=== PATIENT | male | born 1990 | race Caucasian/White ===

== ENCOUNTER 2024-03-25 23:13 | Emergency (ER) | payer OTHER ==
[~2024-03-25] VITALS: Ht 180.3 cm; Wt 62.3 kg
[2024-03-25 23:27] VITALS: TEMP 97.8
[2024-03-26 00:22] LABS: HEMATOCRIT 38.7 % (42.0-52.0); MEAN CORPUSCULAR HEMOGLOBIN 36.1 pg (27.0-33.0); MEAN CORPUSCULAR HGB CONC 36.2 g/dl (32.0-36.5); MEAN CORPUSCULAR VOLUME 99.7 fl (80.0-96.0); PLATELET COUNT, AUTOMATED 256 10^3/uL (150-450); RED BLOOD COUNT 3.88 10^6/uL (4.30-6.10); WHITE BLOOD COUNT 13.8 10^3/uL (4.0-10.0)
[2024-03-26 00:43] LABS: ETHYL ALCOHOL (ETHANOL) 0.118 % (0.000-0.010)
[2024-03-26 00:45] LABS: ALBUMIN 3.6 G/DL (3.2-5.2); ALKALINE PHOSPHATASE 67 U/L (46-116); ALT/SGPT 21 U/L (7.0-40); AST/SGOT 13 U/L (<34); BILIRUBIN,DIRECT 0.2 MG/DL (<0.4); BILIRUBIN,TOTAL 0.4 MG/DL (0.3-1.2); BLOOD UREA NITROGEN 6 MG/DL (9-23); CALCIUM LEVEL 8.9 MG/DL (8.5-10.1); CARBON DIOXIDE LEVEL 27 MMOL/L (20-31); CHLORIDE LEVEL 105 MMOL/L (98-107); CREATININE FOR GFR 0.86 MG/DL (0.70-1.30); GLOMERULAR FILTRATION RATE > 60.0 (>60); GLUCOSE, FASTING 172 MG/DL (60-100); POTASSIUM SERUM 4.5 MMOL/L (3.5-5.1); SALICYLATE LEVEL < 3.0 MG/DL (<30); SODIUM LEVEL 138 MMOL/L (136-145)
[2024-03-26 00:59] LABS: AMPHETAMINES LEVEL URINE NEGATIVE (NEGATIVE); BARBITURATES URINE NEGATIVE (NEGATIVE); BENZODIAZEPINES URINE NEGATIVE (NEGATIVE); COCAINE METABOLITE URINE NEGATIVE (NEGATIVE); METHADONE URINE NEGATIVE (NEGATIVE); OPIATES URINE NEGATIVE (NEGATIVE); PHENCYCLIDINE URINE NEGATIVE (NEGATIVE)
[2024-03-26 01:01] LABS: CANNABINOIDS URINE POSITIVE (NEGATIVE)
[2024-03-26] MEDS: ACETAMINOPHEN TAB 650MG DOSE (2X325MG) PO ONE (01:18)
[2024-03-26] MEDS: ONDANSETRON 4MG ORAL DISINTEGRATING TAB PO ONE (03:08)
[2024-03-26] MEDS: LEVEMIR (INSULIN DETEMIR) 1 UNITS/0.01ML SC ONE (03:08)
[2024-03-26] MEDS: HumuLIN R (REGULAR) INSULIN (NovoLIN R) **100U/ML** PER UNIT SC ONE (03:09)
[2024-03-26 05:00] VITALS: BP 103/58; O2SAT 97
[2024-03-26] MEDS ORDERED: INSULIN LISPRO (NovoLOG) PER UNIT SC SCH ×2 (07:30→21:00)
== END 2024-03-26 05:38 | disposition home or self-care (01) ==
LOC: M ED 23:13
DX: S90.32XA Contusion of left foot, initial encounter (principal); S90.31XA Contusion of right foot, initial encounter; W13.4XXA Fall from, out of or through window, initial encounter; Y92.9 Unspecified place or not applicable; Y93.9 Activity, unspecified; Y99.9 Unspecified external cause status; Z63.0 Problems in relationship with spouse or partner; F31.9 Bipolar disorder, unspecified; F17.290 Nicotine dependence, other tobacco product, uncomplicated; Z88.1 Allergy status to other antibiotic agents
CPT/HCPCS: 73610; 73630; 80048; 80076; 80143; 80307; 82077; 84443; 85027; 99285; J1815

== ENCOUNTER 2024-04-06 14:54 | Inpatient (IN) | payer OTHER ==
[~2024-04-06] VITALS: Ht 180.3 cm; Wt 61.5 kg
[2024-04-06] MEDS ORDERED: INSULIN IV RATE CHANGE DOCUMENTATION ML/HR XX SCH (15:30)
[2024-04-06 15:34] LABS: VENOUS O2 SATURATION 75.6 % (60.0-80.0); VENOUS PARTIAL PRESSURE CO2 28.3 mmHg (38.0-50.0); VENOUS PARTIAL PRESSURE O2 48.5 mmHg (30.0-50.0); VENOUS PH 7.119 UNITS (7.330-7.430); VENOUS STANDARD HCO3 10.6 MMOL/L; VENOUS TOTAL CO2 9.8 MMOL/L (24.0-28.0)
[2024-04-06 15:35] LABS: BASO # 0.1 10^3/uL (0.0-0.2); BASO % 1.2 % (0.0-1.0); HEMATOCRIT 42.3 % (42.0-52.0); HEMOGLOBIN 14.9 g/dl (13.5-17.5); LYMPH % 9.8 % (24.0-44.0); MEAN CORPUSCULAR HEMOGLOBIN 35.6 pg (27.0-33.0); MEAN CORPUSCULAR HGB CONC 35.2 g/dl (32.0-36.5); MEAN CORPUSCULAR VOLUME 101.2 fl (80.0-96.0); MONO # 0.8 10^3/uL (0.0-0.8); MONO % 7.7 % (2.0-8.0); NEUTROPHILS # 8.1 10^3/uL (1.5-8.5); PLATELET COUNT, AUTOMATED 276 10^3/uL (150-450); RED BLOOD COUNT 4.18 10^6/uL (4.30-6.10); WHITE BLOOD COUNT 10.1 10^3/uL (4.0-10.0)
[2024-04-06 15:47] LABS: ETHYL ALCOHOL (ETHANOL) < 0.003 % (0.000-0.010); LIPASE 24 U/L (12-53)
[2024-04-06] MEDS: INSULIN REGULAR IN 0.9 % NACL 100 UNIT in IV 1 EA IV SCH (15:51)
[2024-04-06] MEDS: NS 1,000 ML IV ONE (15:51)
[2024-04-06] MEDS: HumuLIN R (REGULAR) INSULIN (NovoLIN R) **100U/ML** PER UNIT IV ONE (15:52)
[2024-04-06 15:56] LABS: ACETONE/KETONE > 4.50 MMOL/L (0.02-0.27); ALBUMIN 4.1 G/DL (3.2-5.2); ALKALINE PHOSPHATASE 115 U/L (46-116); ALT/SGPT 21 U/L (7.0-40); AST/SGOT 21 U/L (<34); BILIRUBIN,DIRECT 0.3 MG/DL (<0.4); BILIRUBIN,TOTAL 0.8 MG/DL (0.3-1.2); BLOOD UREA NITROGEN 20 MG/DL (9-23); CALCIUM LEVEL 9.4 MG/DL (8.5-10.1); CARBON DIOXIDE LEVEL < 10.0 MMOL/L (20-31); CHLORIDE LEVEL 91 MMOL/L (98-107); CREATININE FOR GFR 0.84 MG/DL (0.70-1.30); GLOMERULAR FILTRATION RATE > 60.0 (>60); GLUCOSE, FASTING 523 MG/DL (60-100); POTASSIUM SERUM 5.5 MMOL/L (3.5-5.1); SODIUM LEVEL 128 MMOL/L (136-145)
[2024-04-06 16:06] LABS: OSMOLALITY SERUM 315 MOSM/KG (275-295)
[2024-04-06] MEDS ORDERED: OMEP-173 PO (16:14)
[2024-04-06] MEDS ORDERED: LISI5TAB11 PO (16:14)
[2024-04-06] MEDS ORDERED: INSUHUMDS SC (16:24)
[2024-04-06] MEDS ORDERED: DEPA500T2 PO (16:26)
[2024-04-06] MEDS ORDERED: PROZ40CA PO (16:26)
[2024-04-06] MEDS ORDERED: PRAZ2CAP PO (16:26)
[2024-04-06] MEDS ORDERED: TRAZ1TAB10 PO (16:26)
[2024-04-06] MEDS ORDERED: DEPA250T2 PO (16:26)
[2024-04-06] MEDS ORDERED: LAMI25TA PO (16:27)
[2024-04-06] MEDS ORDERED: HOME MED LIST COMPLETE! XX SCH (16:30)
[2024-04-06] MEDS ORDERED: INSULIN REGULAR IN 0.9 % NACL 100 UNIT in IV 1 EA IV SCH (17:30)
[2024-04-06 18:11] VITALS: BP 113/57; TEMP 99; O2SAT 100
[2024-04-06] MEDS: D5W/LR 1,000 ML IV SCH (18:12)
[2024-04-06] MEDS: FLUoxetine 20MG CAP PO SCH (18:16)
[2024-04-06 20:00] VITALS: BP 118/61; TEMP 98.2; O2SAT 98
[2024-04-06] MEDS: INSULIN IV RATE CHANGE DOCUMENTATION ML/HR XX SCH (20:03)
[2024-04-06] MEDS: ACETAMINOPHEN TAB 650MG DOSE (2X325MG) PO PRN (20:05)
[2024-04-06 20:25] LABS: BLOOD UREA NITROGEN 18 MG/DL (9-23); CALCIUM LEVEL 8.1 MG/DL (8.5-10.1); CARBON DIOXIDE LEVEL 14 MMOL/L (20-31); CHLORIDE LEVEL 102 MMOL/L (98-107); CPK CREATINE PHOSPHOKINASE 79 U/L (46-171); CREATININE FOR GFR 0.82 MG/DL (0.70-1.30); GLOMERULAR FILTRATION RATE > 60.0 (>60); GLUCOSE, FASTING 259 MG/DL (60-100); PHOSPHORUS LEVEL 2.7 MG/DL (2.5-4.9); POTASSIUM SERUM 4.3 MMOL/L (3.5-5.1); SODIUM LEVEL 133 MMOL/L (136-145)
[2024-04-06] MEDS: ENOXAPARIN 40MG/0.4ML SYRINGE (J1650 PER 10MG) SC SCH (21:00)
[2024-04-06] MEDS: lamoTRIgine 25MG TAB PO SCH (22:00)
[2024-04-06] MEDS: PRAZOSIN 1 MG CAP PO SCH (22:00)
[2024-04-06] MEDS: DIVALPROEX 500MG *ER* TAB PO SCH (22:01)
[2024-04-06] MEDS: DIVALPROEX 250MG *ER* TAB PO SCH (22:01)
[2024-04-06] MEDS: traZODone 50 MG TAB PO SCH (22:01)
[2024-04-07] VITALS (22 sets, daily range): BP systolic 97–120; BP diastolic 50–61; TEMP 98.6–99; O2SAT 95–99
[2024-04-07 00:38] LABS: BLOOD UREA NITROGEN 13 MG/DL (9-23); CALCIUM LEVEL 8.2 MG/DL (8.5-10.1); CARBON DIOXIDE LEVEL 22 MMOL/L (20-31); CHLORIDE LEVEL 107 MMOL/L (98-107); CREATININE FOR GFR 0.67 MG/DL (0.70-1.30); GLOMERULAR FILTRATION RATE > 60.0 (>60); GLUCOSE, FASTING 137 MG/DL (60-100); PHOSPHORUS LEVEL 1.9 MG/DL (2.5-4.9); POTASSIUM SERUM 3.7 MMOL/L (3.5-5.1); SODIUM LEVEL 136 MMOL/L (136-145)
[2024-04-07] MEDS: LEVEMIR (INSULIN DETEMIR) 1 UNITS/0.01ML SC ONE (01:09)
[2024-04-07 05:23] LABS: BLOOD UREA NITROGEN 13 MG/DL (9-23); CALCIUM LEVEL 8.7 MG/DL (8.5-10.1); CARBON DIOXIDE LEVEL 19 MMOL/L (20-31); CHLORIDE LEVEL 107 MMOL/L (98-107); CREATININE FOR GFR 0.69 MG/DL (0.70-1.30); GLOMERULAR FILTRATION RATE > 60.0 (>60); GLUCOSE, FASTING 67 MG/DL (60-100); MAGNESIUM LEVEL 1.8 MG/DL (1.8-2.4); PHOSPHORUS LEVEL 4.2 MG/DL (2.5-4.9); POTASSIUM SERUM 4.2 MMOL/L (3.5-5.1); SODIUM LEVEL 137 MMOL/L (136-145)
[2024-04-07] MEDS ORDERED: GLUCAGON INJ 1MG VIAL SC PRN (07:20)
[2024-04-07] MEDS ORDERED: GLUCOSE 4 GM CHEW PO PRN (07:20)
[2024-04-07] MEDS ORDERED: DEXTROSE 50% 50ML SYRINGE IV PRN (07:20)
[2024-04-07] MEDS: OMEPRAZOLE 20MG CAP PO SCH (08:40)
[2024-04-07] MEDS: lisinopriL 5 MG TAB PO SCH (08:42)
[2024-04-07 08:48] LABS: BLOOD UREA NITROGEN 12 MG/DL (9-23); CALCIUM LEVEL 8.8 MG/DL (8.5-10.1); CARBON DIOXIDE LEVEL 19 MMOL/L (20-31); CHLORIDE LEVEL 105 MMOL/L (98-107); CREATININE FOR GFR 0.68 MG/DL (0.70-1.30); GLOMERULAR FILTRATION RATE > 60.0 (>60); GLUCOSE, FASTING 128 MG/DL (60-100); PHOSPHORUS LEVEL 3.4 MG/DL (2.5-4.9); POTASSIUM SERUM 4.7 MMOL/L (3.5-5.1); SODIUM LEVEL 135 MMOL/L (136-145)
[2024-04-07] MEDS: INSULIN LISPRO (NovoLOG) PER UNIT SC SCH (09:58)
[2024-04-07 10:14] LABS: BASO # 0.1 10^3/uL (0.0-0.2); BASO % 0.9 % (0.0-1.0); EOS # 0.1 10^3/uL (0.0-0.5); EOS % 0.9 % (0.0-3.0); HEMATOCRIT 37.5 % (42.0-52.0); HEMOGLOBIN 13.6 g/dl (13.5-17.5); LYMPH # 2.7 10^3/uL (1.5-5.0); LYMPH % 35.8 % (24.0-44.0); MEAN CORPUSCULAR HEMOGLOBIN 35.8 pg (27.0-33.0); MEAN CORPUSCULAR HGB CONC 36.3 g/dl (32.0-36.5); MEAN CORPUSCULAR VOLUME 98.7 fl (80.0-96.0); MONO # 0.8 10^3/uL (0.0-0.8); NEUTROPHILS # 3.9 10^3/uL (1.5-8.5); NEUTROPHILS % 51.1 % (36.0-66.0); PLATELET COUNT, AUTOMATED 251 10^3/uL (150-450); WHITE BLOOD COUNT 7.6 10^3/uL (4.0-10.0)
[2024-04-07] MEDS ORDERED: INSUHUMDS SC (16:56)
[2024-04-07] MEDS ORDERED: INSUDET SC (16:56)
[2024-04-07] MEDS ORDERED: INSULIN LISPRO (NovoLOG) PER UNIT SC SCH (21:00)
[2024-04-07] MEDS ORDERED: LEVEMIR (INSULIN DETEMIR) 1 UNITS/0.01ML SC SCH (21:00)
== END 2024-04-07 19:02 | disposition home or self-care (01) | DRG 420 ==
LOC: EDBD 14:54 → M ED 14:54 → M ED INP 16:53 → M ICU 18:02
PROVIDERS: ADMIT Internal Medicine Pulmonary Disease; ATTEND Internal Medicine Pulmonary Disease
DX: E10.10 Type 1 diabetes mellitus with ketoacidosis without coma (principal); I10 Essential (primary) hypertension; F39 Unspecified mood [affective] disorder; F17.290 Nicotine dependence, other tobacco product, uncomplicated; Z79.4 Long term (current) use of insulin; Z79.899 Other long term (current) drug therapy; Z88.1 Allergy status to other antibiotic agents; Z11.52 Encounter for screening for COVID-19

== ENCOUNTER 2024-05-15 21:58 | Emergency (ER) | payer MEDICAID, OTHER ==
[~2024-05-15] VITALS: Ht 177.8 cm; Wt 62.0 kg
[~2024-05-15 21:58] MED LIST: DEPA250T2 PO; DEPA500T2 PO; INSUDET SC; INSUHUMDS SC; LAMI25TA PO; LISI5TAB11 PO; OMEP-173 PO; PRAZ2CAP PO; PROZ40CA PO; TRAZ1TAB10 PO
[2024-05-15 22:29] LABS: HEMATOCRIT 38.1 % (42.0-52.0); HEMOGLOBIN 13.9 g/dl (13.5-17.5); MEAN CORPUSCULAR HEMOGLOBIN 36.8 pg (27.0-33.0); MEAN CORPUSCULAR HGB CONC 36.5 g/dl (32.0-36.5); MEAN CORPUSCULAR VOLUME 100.8 fl (80.0-96.0); PLATELET COUNT, AUTOMATED 248 10^3/uL (150-450); RED BLOOD COUNT 3.78 10^6/uL (4.30-6.10); WHITE BLOOD COUNT 9.3 10^3/uL (4.0-10.0)
[2024-05-15 22:46] LABS: AMPHETAMINES LEVEL URINE NEGATIVE (NEGATIVE); BARBITURATES URINE NEGATIVE (NEGATIVE); BENZODIAZEPINES URINE NEGATIVE (NEGATIVE); COCAINE METABOLITE URINE NEGATIVE (NEGATIVE); METHADONE URINE NEGATIVE (NEGATIVE); OPIATES URINE NEGATIVE (NEGATIVE); PHENCYCLIDINE URINE NEGATIVE (NEGATIVE)
[2024-05-15 22:49] LABS: SALICYLATE LEVEL < 3.0 MG/DL (<30)
[2024-05-15 22:51] LABS: THYROID STIMULATING HORMONE 1.003 uIU/ML (0.55-4.78)
[2024-05-15 22:58] LABS: CANNABINOIDS URINE POSITIVE (NEGATIVE)
[2024-05-15 23:09] LABS: ALKALINE PHOSPHATASE 84 U/L (46-116); ALT/SGPT 17 U/L (7.0-40); AST/SGOT 15 U/L (<34); BILIRUBIN,DIRECT 0.2 MG/DL (<0.4); BILIRUBIN,TOTAL 0.5 MG/DL (0.3-1.2); BLOOD UREA NITROGEN < 5 MG/DL (9-23); CALCIUM LEVEL 9.4 MG/DL (8.5-10.1); CARBON DIOXIDE LEVEL 27 MMOL/L (20-31); CHLORIDE LEVEL 101 MMOL/L (98-107); CREATININE FOR GFR 0.75 MG/DL (0.70-1.30); ETHYL ALCOHOL (ETHANOL) 0.301 % (0.000-0.010); GLOMERULAR FILTRATION RATE > 60.0 (>60); GLUCOSE, FASTING 107 MG/DL (60-100); POTASSIUM SERUM 4.1 MMOL/L (3.5-5.1); SODIUM LEVEL 134 MMOL/L (136-145); TOTAL PROTEIN 6.8 G/DL (5.7-8.2)
[2024-05-16] MEDS: NICOTINE 14 MG/24 HR TRANSDERMAL TD ONE (00:08)
[2024-05-16] MEDS ORDERED: INSUHUMDS SC (03:01)
[2024-05-16] MEDS ORDERED: TRAZ-252 PO (03:05)
[2024-05-16] MEDS ORDERED: HOME MED LIST COMPLETE! XX SCH (03:10)
[2024-05-16] MEDS: DIVALPROEX 250MG *ER* TAB PO ONE (04:30)
[2024-05-16] MEDS: lamoTRIgine 25MG TAB PO ONE (04:31)
[2024-05-16] MEDS: HumuLIN R (REGULAR) INSULIN (NovoLIN R) **100U/ML** PER UNIT SC STA (05:07)
[2024-05-16 07:36] LABS: VALPROIC ACID (DEPAKOTE) 33.4 UG/ML (50.0-100.0)
[2024-05-16] MEDS: INSULIN LISPRO (NovoLOG) PER UNIT SC SCH (08:21)
[2024-05-16 13:11] VITALS: BP 154/77; TEMP 97.8; O2SAT 98
== END 2024-05-16 13:14 | disposition home or self-care (01) ==
LOC: M ED 21:58
DX: F31.9 Bipolar disorder, unspecified (principal); G40.909 Epilepsy, unspecified, not intractable, without status epilepticus; Z79.899 Other long term (current) drug therapy; Z88.1 Allergy status to other antibiotic agents
CPT/HCPCS: 80048; 80076; 80143; 80164; 80175; 80307; 82077; 84443; 85027; 99284; J1815

== ENCOUNTER 2024-09-02 23:27 | Emergency (ER) | payer OTHER ==
[~2024-09-02] VITALS: Ht 180.3 cm; Wt 87.2 kg
[~2024-09-02 23:27] MED LIST changes: +TRAZ-252 PO
[2024-09-02 23:36] VITALS: BP 141/65; TEMP 98.2; O2SAT 96
== END 2024-09-03 01:11 | disposition left against medical advice (07) ==
LOC: M ED 23:27 → EDBD 23:27 → M ED 09-03 01:11
DX: Z53.21 Procedure and treatment not carried out due to patient leaving prior to being seen by health care provider (principal)

== ENCOUNTER 2024-09-03 03:28 | Emergency (ER) | payer OTHER ==
[~2024-09-03] VITALS: Ht 180.3 cm; Wt 63.5 kg
[2024-09-03 03:31] VITALS: BP 122/62; TEMP 97.5; O2SAT 99
== END 2024-09-03 05:25 | disposition left against medical advice (07) ==
LOC: M ED 03:28
DX: Z53.21 Procedure and treatment not carried out due to patient leaving prior to being seen by health care provider (principal)

== ENCOUNTER 2024-11-27 16:59 | Emergency (ER) | payer OTHER ==
[~2024-11-27] VITALS: Ht 180.3 cm; Wt 72.5 kg
[2024-11-27 17:11] VITALS: TEMP 97.8
[2024-11-27 17:22] LABS: VENOUS BASE EXCESS 3.7 (-2.0-2.0); VENOUS HCO3 30.8 MMOL/L (23.0-27.0); VENOUS O2 SATURATION 61.2 % (60.0-80.0); VENOUS PARTIAL PRESSURE CO2 57.1 mmHg (38.0-50.0); VENOUS PARTIAL PRESSURE O2 35.1 mmHg (30.0-50.0); VENOUS STANDARD HCO3 26.8 MMOL/L; VENOUS TOTAL CO2 32.6 MMOL/L (24.0-28.0)
[2024-11-27 17:25] LABS: BASO # 0.1 10^3/uL (0.0-0.2); BASO % 1.2 % (0.0-1.0); EOS % 0.4 % (0.0-3.0); HEMATOCRIT 38.6 % (42.0-52.0); HEMOGLOBIN 13.7 g/dl (13.5-17.5); LYMPH # 2.6 10^3/uL (1.5-5.0); MEAN CORPUSCULAR HEMOGLOBIN 35.4 pg (27.0-33.0); MEAN CORPUSCULAR HGB CONC 35.5 g/dl (32.0-36.5); MEAN CORPUSCULAR VOLUME 99.7 fl (80.0-96.0); MONO # 0.5 10^3/uL (0.0-0.8); MONO % 9.2 % (2.0-8.0); NEUTROPHILS # 1.9 10^3/uL (1.5-8.5); PLATELET COUNT, AUTOMATED 244 10^3/uL (150-450); RED BLOOD COUNT 3.87 10^6/uL (4.30-6.10); WHITE BLOOD COUNT 5.1 10^3/uL (4.0-10.0)
[2024-11-27] MEDS: NS (Normal Saline) 0.9% 1,000 ML IV ONE ×2 (17:32→18:38)
[2024-11-27 17:51] LABS: OSMOLALITY SERUM 384 MOSM/KG (275-295)
[2024-11-27 17:53] LABS: LIPASE 25 U/L (12-53)
[2024-11-27 17:55] LABS: ALBUMIN 3.9 G/DL (3.2-5.2); ALKALINE PHOSPHATASE 74 U/L (40-129); ALT/SGPT 17 U/L (7.0-40); AST/SGOT 14 U/L (<34); BILIRUBIN,DIRECT 0.1 MG/DL (<0.4); BILIRUBIN,TOTAL 0.3 MG/DL (0.3-1.2); BLOOD UREA NITROGEN 7 MG/DL (9-23); CALCIUM LEVEL 9.1 MG/DL (8.5-10.1); CARBON DIOXIDE LEVEL 33 MMOL/L (20-31); CHLORIDE LEVEL 102 MMOL/L (98-107); CREATININE FOR GFR 0.84 MG/DL (0.70-1.30); GLOMERULAR FILTRATION RATE > 60.0 (>60); GLUCOSE, FASTING 80 MG/DL (60-100); POTASSIUM SERUM 4.4 MMOL/L (3.5-5.1); SODIUM LEVEL 141 MMOL/L (136-145); TOTAL PROTEIN 6.9 G/DL (5.7-8.2)
[2024-11-27 17:56] LABS: ACETONE/KETONE 0.08 MMOL/L (0.02-0.27); HEMOGLOBIN A1c 7.4 % (4.0-6.0)
[2024-11-27 18:04] LABS: AMPHETAMINES LEVEL URINE NEGATIVE (NEGATIVE); BARBITURATES URINE NEGATIVE (NEGATIVE); BENZODIAZEPINES URINE NEGATIVE (NEGATIVE); COCAINE METABOLITE URINE NEGATIVE (NEGATIVE); METHADONE URINE NEGATIVE (NEGATIVE); OPIATES URINE NEGATIVE (NEGATIVE)
[2024-11-27 18:05] LABS: PHENCYCLIDINE URINE NEGATIVE (NEGATIVE)
[2024-11-27] MEDS: diphenhydrAMINE 50MG/ML VIAL IV ONE (18:06)
[2024-11-27] MEDS: KETOROLAC 30 MG/ML 1ML VIAL IV ONE (18:07)
[2024-11-27] MEDS: ACETAMINOPHEN *IV* 1,000 MG in IV 1 EA IV ONE (18:07)
[2024-11-27 18:10] LABS: ETHYL ALCOHOL (ETHANOL) 0.373 % (0.000-0.010)
[2024-11-27 18:10] LABS: CANNABINOIDS URINE POSITIVE (NEGATIVE)
[2024-11-28 01:00] VITALS: BP 103/65
[2024-11-28 01:02] VITALS: O2SAT 99
== END 2024-11-28 01:41 | disposition home or self-care (01) ==
LOC: EDBD 16:59 → M ED 16:59
DX: F10.129 Alcohol abuse with intoxication, unspecified (principal); E11.9 Type 2 diabetes mellitus without complications; G43.909 Migraine, unspecified, not intractable, without status migrainosus; F90.9 Attention-deficit hyperactivity disorder, unspecified type; F31.9 Bipolar disorder, unspecified; Z79.899 Other long term (current) drug therapy; Z88.8 Allergy status to other drugs, medicaments and biological substances
CPT/HCPCS: 70450; 80048; 80076; 80164; 80175; 80307; 82010; 82077; 82803; 83036; 83690; 83930; 85025; 93005; 93041; 94760; 96361; 96365; 96375; 99285; J0131; J1200; J1885

== ENCOUNTER 2024-12-18 14:29 | Inpatient (IN) | payer OTHER ==
[~2024-12-18] VITALS: Ht 177.8 cm; Wt 70.9 kg
[2024-12-18] MEDS: MORPHINE 4 MG/ML 1ML VIAL IV PRN ×2 (15:24→22:25)
[2024-12-18 15:32] LABS: HEMATOCRIT 41.5 % (42.0-52.0); HEMOGLOBIN 14.5 g/dl (13.5-17.5); MEAN CORPUSCULAR HEMOGLOBIN 34.4 pg (27.0-33.0); MEAN CORPUSCULAR HGB CONC 34.9 g/dl (32.0-36.5); MEAN CORPUSCULAR VOLUME 98.6 fl (80.0-96.0); PLATELET COUNT, AUTOMATED 285 10^3/uL (150-450); RED BLOOD COUNT 4.21 10^6/uL (4.30-6.10)
[2024-12-18 15:33] LABS: BASO # 0.1 10^3/uL (0.0-0.2); BASO % 0.7 % (0.0-1.0); HEMATOCRIT 41.5 % (42.0-52.0); HEMOGLOBIN 14.5 g/dl (13.5-17.5); LYMPH # 1.5 10^3/uL (1.5-5.0); LYMPH % 18.6 % (24.0-44.0); MEAN CORPUSCULAR HEMOGLOBIN 34.9 pg (27.0-33.0); MEAN CORPUSCULAR HGB CONC 34.9 g/dl (32.0-36.5); MONO # 0.5 10^3/uL (0.0-0.8); MONO % 6.2 % (2.0-8.0); NEUTROPHILS # 6.1 10^3/uL (1.5-8.5); NEUTROPHILS % 73.5 % (36.0-66.0); PLATELET COUNT, AUTOMATED 277 10^3/uL (150-450); RED BLOOD COUNT 4.15 10^6/uL (4.30-6.10); WHITE BLOOD COUNT 8.3 10^3/uL (4.0-10.0)
[2024-12-18] MEDS ORDERED: ISOVUE-370 76% 100ML VIAL As Ordered ONE (15:40)
[2024-12-18 15:48] LABS: INR 0.95; PARTIAL THROMBOPLASTIN TIME 22.5 SECONDS (24.8-34.2); PROTHROMBIN TIME 12.9 SECONDS (12.5-14.5)
[2024-12-18 15:58] LABS: ETHYL ALCOHOL (ETHANOL) 0.229 % (0.000-0.010)
[2024-12-18 16:05] LABS: ALBUMIN 3.7 G/DL (3.2-5.2); BILIRUBIN,DIRECT 0.1 MG/DL (<0.4); BILIRUBIN,TOTAL 0.3 MG/DL (0.3-1.2); TOTAL PROTEIN 6.6 G/DL (5.7-8.2)
[2024-12-18] MEDS: PERCOCET 5MG/325MG TAB PO ONE (17:25)
[2024-12-18 18:56] LABS: APPEARANCE, URINE CLEAR (CLEAR); BACTERIA, URINE AUTO NEGATIVE (NEGATIVE); BILIRUBIN, URINE AUTO NEGATIVE (NEGATIVE); BLOOD, URINE BLOOD NEGATIVE (NEGATIVE); COLOR, URINE COLORLESS (YELLOW); GLUCOSE, URINE (UA) AUTO 1+ mg/dL (NEGATIVE); KETONE, URINE AUTO NEGATIVE (NEGATIVE); LEUKOCYTE ESTERASE, URINE AUTO NEGATIVE (NEGATIVE); NITRITE, URINE AUTO NEGATIVE (NEGATIVE); PROTEIN, URINE AUTO NEGATIVE (NEGATIVE); RBC, URINE AUTO 0 /HPF (0-3); SPECIFIC GRAVITY URINE AUTO 1.016 (1.002-1.035); SQUAMOUS EPITHELIAL CELL UR AU 0 /HPF (0-6); UROBILINOGEN, URINE AUTO 0.2 mg/dL (0.0-2.0); WBC, URINE AUTO 0 /HPF (0-3)
[2024-12-18 19:18] LABS: METHADONE URINE NEGATIVE (NEGATIVE); PHENCYCLIDINE URINE NEGATIVE (NEGATIVE)
[2024-12-18 19:19] LABS: AMPHETAMINES LEVEL URINE NEGATIVE (NEGATIVE); BARBITURATES URINE NEGATIVE (NEGATIVE); BENZODIAZEPINES URINE NEGATIVE (NEGATIVE); COCAINE METABOLITE URINE NEGATIVE (NEGATIVE)
[2024-12-18 19:20] LABS: CANNABINOIDS URINE POSITIVE (NEGATIVE); OPIATES URINE POSITIVE (NEGATIVE)
[2024-12-18] MEDS ORDERED: MAALOX 30 ML SUSP *UDC PO PRN (21:55)
[2024-12-18] MEDS ORDERED: DEXTROSE 50% 50ML SYRINGE IV PRN (21:55)
[2024-12-18] MEDS ORDERED: GLUCOSE 4 GM CHEW PO PRN (21:55)
[2024-12-18] MEDS ORDERED: GLUCAGON INJ 1MG VIAL SC PRN (21:55)
[2024-12-18] MEDS ORDERED: ACETAMINOPHEN 325 MG TAB PO PRN (21:55)
[2024-12-18] MEDS ORDERED: MOM 30ML SUSPENSION UDC PO PRN (21:55)
[2024-12-18] MEDS ORDERED: med rec comment (22:10)
[2024-12-18] MEDS ORDERED: HOME MED LIST COMPLETE! XX SCH (22:10)
[2024-12-18 22:55] LABS: VALPROIC ACID (DEPAKOTE) 27.8 UG/ML (50.0-100.0)
[2024-12-18 22:57] LABS: BLOOD UREA NITROGEN 9 MG/DL (9-23); CALCIUM LEVEL 8.8 MG/DL (8.5-10.1); CARBON DIOXIDE LEVEL 27 MMOL/L (20-31); CHLORIDE LEVEL 103 MMOL/L (98-107); CREATININE FOR GFR 0.71 MG/DL (0.70-1.30); GLOMERULAR FILTRATION RATE > 90.0 (>60); GLUCOSE, FASTING 196 MG/DL (60-100); POTASSIUM SERUM 4.2 MMOL/L (3.5-5.1); SODIUM LEVEL 141 MMOL/L (136-145)
[2024-12-18 23:49] VITALS: BP 124/83; TEMP 98.1; O2SAT 94
[2024-12-19] MEDS: MORPHINE 2 MG/ML 1ML VIAL IV PRN (02:11)
[2024-12-19] MEDS: KETOROLAC 30 MG/ML 1ML VIAL IV PRN (03:19)
[2024-12-19 04:00] VITALS: BP 122/82; TEMP 97.9; O2SAT 98
[2024-12-19 06:17] LABS: HEMATOCRIT 41.1 % (42.0-52.0); HEMOGLOBIN 14.6 g/dl (13.5-17.5); MEAN CORPUSCULAR HEMOGLOBIN 35.5 pg (27.0-33.0); MEAN CORPUSCULAR HGB CONC 35.5 g/dl (32.0-36.5); PLATELET COUNT, AUTOMATED 272 10^3/uL (150-450); RED BLOOD COUNT 4.11 10^6/uL (4.30-6.10); WHITE BLOOD COUNT 7.5 10^3/uL (4.0-10.0)
[2024-12-19 06:40] LABS: BLOOD UREA NITROGEN 9 MG/DL (9-23); CALCIUM LEVEL 8.9 MG/DL (8.5-10.1); CARBON DIOXIDE LEVEL 28 MMOL/L (20-31); CHLORIDE LEVEL 100 MMOL/L (98-107); CREATININE FOR GFR 0.81 MG/DL (0.70-1.30); GLOMERULAR FILTRATION RATE > 90.0 (>60); GLUCOSE, FASTING 160 MG/DL (60-100); POTASSIUM SERUM 4.2 MMOL/L (3.5-5.1); SODIUM LEVEL 138 MMOL/L (136-145)
[2024-12-19] MEDS ORDERED: INSULIN LISPRO (NovoLOG) PER UNIT SC SCH (07:30)
[2024-12-19] MEDS: DOCUSATE SODIUM 100MG CAPSULE PO SCH (08:18)
[2024-12-19] MEDS: NS (Normal Saline) 0.9% 1,000 ML IV SCH (08:18)
[2024-12-19] MEDS: PERCOCET 5MG/325MG TAB PO PRN ×2 (08:18→14:16)
[2024-12-19] MEDS: PANTOPRAZOLE 40MG VIAL IV SCH (08:18)
[2024-12-19 12:00] VITALS: BP 144/72; TEMP 97
[2024-12-19] MEDS: RIVAROXABAN 10MG TAB (XARELTO) PO SCH (17:15)
[2024-12-19 20:34] VITALS: BP 140/78; TEMP 97; O2SAT 97
[2024-12-19] MEDS: INSULIN LISPRO (NovoLOG) PER UNIT SC SCH (21:00)
[2024-12-20 04:00] VITALS: BP 138/81; TEMP 97.3; O2SAT 100
[2024-12-20 06:00] LABS: HEMATOCRIT 39.9 % (42.0-52.0); MEAN CORPUSCULAR HEMOGLOBIN 35.6 pg (27.0-33.0); MEAN CORPUSCULAR HGB CONC 35.1 g/dl (32.0-36.5); MEAN CORPUSCULAR VOLUME 101.5 fl (80.0-96.0); PLATELET COUNT, AUTOMATED 239 10^3/uL (150-450); RED BLOOD COUNT 3.93 10^6/uL (4.30-6.10); WHITE BLOOD COUNT 4.6 10^3/uL (4.0-10.0)
[2024-12-20 06:32] LABS: ALBUMIN 3.2 G/DL (3.2-5.2); ALKALINE PHOSPHATASE 101 U/L (40-129); ALT/SGPT 26 U/L (7.0-40); AST/SGOT 15 U/L (<34); BILIRUBIN,TOTAL 0.8 MG/DL (0.3-1.2); BLOOD UREA NITROGEN 12 MG/DL (9-23); CALCIUM LEVEL 8.8 MG/DL (8.5-10.1); CARBON DIOXIDE LEVEL 30 MMOL/L (20-31); CHLORIDE LEVEL 101 MMOL/L (98-107); CREATININE FOR GFR 0.88 MG/DL (0.70-1.30); GLOMERULAR FILTRATION RATE > 90.0 (>60); GLUCOSE, FASTING 203 MG/DL (60-100); POTASSIUM SERUM 4.6 MMOL/L (3.5-5.1); SODIUM LEVEL 137 MMOL/L (136-145); TOTAL PROTEIN 5.9 G/DL (5.7-8.2)
[2024-12-20] MEDS ORDERED: COLA100C5 PO (07:18)
[2024-12-20] MEDS ORDERED: ACET32TAB PO (07:18)
[2024-12-20] MEDS ORDERED: PERCOCET PO (07:18)
== END 2024-12-20 10:37 | disposition home or self-care (01) | DRG 347 ==
LOC: EDBD 14:29 → M ED 14:29 → M ED INP 14:30 → OBSVTOIN 14:31 → M MS5PR 23:39
PROVIDERS: ADMIT Student in an Organized Health Care Education/Training Program; ATTEND Internal Medicine
DX: S22.080A Wedge compression fracture of T11-T12 vertebra, initial encounter for closed fracture (principal); I10 Essential (primary) hypertension; F39 Unspecified mood [affective] disorder; E10.9 Type 1 diabetes mellitus without complications; F17.290 Nicotine dependence, other tobacco product, uncomplicated; Z79.899 Other long term (current) drug therapy; Z79.4 Long term (current) use of insulin; Z88.1 Allergy status to other antibiotic agents; Z88.8 Allergy status to other drugs, medicaments and biological substances; V13.2XXA Unspecified pedal cyclist injured in collision with car, pick-up truck or van in nontraffic accident, initial encounter; Y92.410 Unspecified street and highway as the place of occurrence of the external cause; Y93.55 Activity, bike riding; Y99.8 Other external cause status

== ENCOUNTER 2024-12-26 16:51 | Emergency (ER) | payer MEDICAID, OTHER ==
[~2024-12-26] VITALS: Ht 172.7 cm; Wt 68.2 kg
[~2024-12-26 16:51] MED LIST changes: +ACET32TAB PO; +COLA100C5 PO; +PERCOCET PO; +med rec comment
[2024-12-26 17:32] LABS: BASO # 0.1 10^3/uL (0.0-0.2); BASO % 1.3 % (0.0-1.0); EOS % 0.2 % (0.0-3.0); HEMATOCRIT 40.7 % (42.0-52.0); HEMOGLOBIN 14.3 g/dl (13.5-17.5); LYMPH # 2.5 10^3/uL (1.5-5.0); LYMPH % 41.4 % (24.0-44.0); MEAN CORPUSCULAR HEMOGLOBIN 34.8 pg (27.0-33.0); MEAN CORPUSCULAR HGB CONC 35.1 g/dl (32.0-36.5); MONO # 0.5 10^3/uL (0.0-0.8); MONO % 8.2 % (2.0-8.0); NEUTROPHILS % 48.6 % (36.0-66.0); PLATELET COUNT, AUTOMATED 281 10^3/uL (150-450); RED BLOOD COUNT 4.11 10^6/uL (4.30-6.10); WHITE BLOOD COUNT 6.1 10^3/uL (4.0-10.0)
[2024-12-26 17:43] LABS: INR 0.88; PARTIAL THROMBOPLASTIN TIME 25.2 SECONDS (24.8-34.2); PROTHROMBIN TIME 12.2 SECONDS (12.5-14.5)
[2024-12-26 18:03] LABS: ALBUMIN 3.9 G/DL (3.2-5.2); ALKALINE PHOSPHATASE 107 U/L (40-129); ALT/SGPT 39 U/L (7.0-40); AST/SGOT 33 U/L (<34); BILIRUBIN,DIRECT < 0.1 MG/DL (<0.4); BILIRUBIN,TOTAL 0.3 MG/DL (0.3-1.2); BLOOD UREA NITROGEN 13 MG/DL (9-23); CALCIUM LEVEL 9.1 MG/DL (8.5-10.1); CARBON DIOXIDE LEVEL 24 MMOL/L (20-31); CHLORIDE LEVEL 102 MMOL/L (98-107); CREATININE FOR GFR 0.71 MG/DL (0.70-1.30); GLOMERULAR FILTRATION RATE > 90.0 (>60); GLUCOSE, FASTING 160 MG/DL (60-100); POTASSIUM SERUM 3.8 MMOL/L (3.5-5.1); SODIUM LEVEL 137 MMOL/L (136-145); TOTAL PROTEIN 6.9 G/DL (5.7-8.2)
[2024-12-26] MEDS: NS (Normal Saline) 0.9% 1,000 ML IV SCH (18:28)
[2024-12-26] MEDS: KETOROLAC 30 MG/ML 1ML VIAL IV ONE (18:29)
[2024-12-26 18:36] LABS: KETONE, URINE AUTO RFX NEGATIVE (NEGATIVE); LEUKOCYTE ESTERASE UR AUTO RFX NEGATIVE (NEGATIVE); NITRITE, URINE AUTO RFX NEGATIVE (NEGATIVE); RBC, URINE AUTO RFX 0 /HPF (0-3); SQUAM EPITHELIAL CELL UR AURFX 0 /HPF (0-6); WBC, URINE AUTO RFX 0 /HPF (0-3)
[2024-12-26 18:42] LABS: ETHYL ALCOHOL (ETHANOL) 0.299 % (0.000-0.010)
[2024-12-26] MEDS: MORPHINE 4 MG/ML 1ML VIAL IV ONE (22:16)
[2024-12-26 23:59] VITALS: BP 110/63; TEMP 97.8; O2SAT 100
== END 2024-12-27 00:05 | disposition home or self-care (01) ==
LOC: EDBD 16:51 → M ED 16:51
DX: F10.129 Alcohol abuse with intoxication, unspecified (principal); M54.9 Dorsalgia, unspecified; E11.9 Type 2 diabetes mellitus without complications; I10 Essential (primary) hypertension; F39 Unspecified mood [affective] disorder; M51.371 Other intervertebral disc degeneration, lumbosacral region with lower extremity pain only; Z79.899 Other long term (current) drug therapy; Z88.8 Allergy status to other drugs, medicaments and biological substances
CPT/HCPCS: 72080; 72146; 72148; 72192; 73564; 80048; 80076; 81001; 82077; 85025; 85610; 85730; 93041; 96361; 96374; 96375; 99284; J1885